=== PATIENT | male | born 1965 | race Caucasian/White ===

== ENCOUNTER → 2021-01-25 09:01 | Outpatient (BNVA) | payer OTHER, SELFPAY | PROVIDERS: Family Provider Nurse Practitioner; PCP Nurse Practitioner; Referring Provider Nurse Practitioner; Visit Provider Orthopaedic Surgery | DX: S69.91XA Unspecified injury of right wrist, hand and finger(s), initial encounter (principal); X58.XXXA Exposure to other specified factors, initial encounter | CPT/HCPCS: 73140 ==

== ENCOUNTER 2021-03-05 10:11 | Emergency (ER) | payer OTHER, SELFPAY ==
[2021-03-05 10:15] VITALS: BP 149/86; PULSE 79; RESP 16; TEMP 36.3; O2SAT 99; BMI 29.4
--- NOTE | 2021-03-05 10:17 | ED_ITS ---
HPI - Abdominal Pain General: Chief Complaint: Abdominal Pain Stated Complaint: ABD PAIN N/V Time Seen by Provider: 03/05/21 10:11 Source: patient Mode of arrival: ambulatory Limitations: no limitations History of Present Illness: HPI narrative: Patient is a 55-year-old male who presents to ED today with a complaint of abdominal pain. He tells me pain initially began on Thursday. He states pain is all over . Pain has been constant since onset and does not seem to be improving. He is treated with OTC anti-acid and stomach meds without relief. He states yesterday he had 3 episodes of nonbloody emesis. He has not vomited today. He has had a few episodes of nonbloody diarrhea. No fevers. No urinary complaints. No previous abdominal surgeries. Has not noticed any masses or bulges to his abdomen or groin. He states pain seems to be worse with eating and admittedly does not have much of an appetite. MD elicited complaint: abdominal pain Pertinent past history: none Onset (ago): day(s) Pain Consistency: constant Location: Diffuse Quality: cramping Radiation: none Migration to: no migration Exacerbating factors: eating Relieving factors: nothing Associated Symptoms: Reports GI cramping, diarrhea, nausea and vomiting; Denies chills, coffee ground emesis, dysuria, fever(s), hematochezia, hematemesis and melena Review of Systems Const: Reports: change in appetite; Denies: fever(s), chills, body aches, change in weight, fatigue, malaise or night sweats ENMT: Denies: throat pain or odynophagia Card: Denies: chest pain Resp: Denies: dyspnea GI: Reports: abdominal pain, nausea, vomiting, diarrhea and GI cramping; Denies: hematemesis, coffee ground emesis, dysphagia, rectal pain, rectal swelling, rectal itching, hematochezia or melena : Denies: flank pain or dysuria Musc: Denies: neck pain or back pain Skin/Breast: Denies: rash Neuro: Denies: headache(s) PFS ED PFSH: Social History (Updated 01/25/21 @ 08:57 by Jairo Becerra LPN) Smoking and tobacco status: current every day smoker Alcohol intake: never Physical Exam Const: COMMON NORMALS: no acute distress, patient oriented x3, no limitations, alert and well nourished GENERAL APPEARANCE: cooperative Resp: COMMON NORMALS: normal respiratory effort and clear to auscultation bilaterally AUSCULTATION: clear to auscultation bilaterally Cardio: COMMON NORMALS: regular rate and regular rhythm RATE: regular rate RHYTHM: regular rhythm GI: COMMON NORMALS: Normal to inspection, nondistended, normoactive bowel sounds present, Soft to palpation, No hepatosplenomegaly present and no masses INSPECTION: Yes normal to inspection AUSCULTATION: Yes normoactive bowel sounds PALPATION: Yes Soft to palpation, Yes Tenderness to palpation present (GI) (diffusely but seems more tender to LUQ) and Yes No hepatosplenomegaly present : COMMON NORMALS: Yes no CVA tenderness BLADDER/KIDNEY EXAM: Yes no CVA tenderness Back/Pelvis: COMMON NORMALS: no CVA tenderness, thoracic and lumbar spine normal to inspection, no thoracic nor lumbar tenderness and thoraco-lumbar ROM normal Extremity: GENERAL: Yes normal exam except as noted Neuro: COMMON NORMALS: patient oriented x3 SENSORIUM/ORIENTATION: Yes alert Skin: COMMON NORMALS: no rashes or lesions noted GENERAL SKIN EXAM: no rashes or lesions noted Course Vital Signs: Vital signs: Vital Signs Temperature 97.3 F L 03/05/21 10:15 Pulse Rate 63 03/05/21 11:29 Respiratory Rate 16 03/05/21 10:39 Blood Pressure 115/74 03/05/21 11:29 Pulse Oximetry 98 03/05/21 11:29 MDM - Abdominal Pain MDM Narrative: Medical decision making narrative: Patient clinically appears well. His vital signs are stable. Labs are overall unremarkable. CT scan showing mild enteritis. Possible mesenteric adenitis. Findings discussed with patient. Discussed how this most likely will be self-limiting. Will place patient on pain and nausea medications and recommend bland diet with advancing as tolerated. [facility] Return to ED precautions given. Lab Data: Labs: Lab Results 03/05/21 03/05/21 03/05/21 Range/Units 10:35 10:35 11:24 WBC 10.5 H (4.0-10.0) 10^3/ uL RBC 4.89 (4.1-5.3) 10^6/u L Hgb 15.8 (11.7-16.6) g/dL Hct 46.2 (42.0-52.0) % MCV 94.5 H (80-94) fL MCH 32.3 (28.0-34.0) pg MCHC 34.2 (30.0-36.0) g/dL RDW 12.4 (12.1-15.1) % Plt Count 155 (130-400) 10^3/c mm MPV 13.0 H (7.4-10.4) fL Neut % (Auto) 71.3 % Lymph % (Auto) 18.9 % Rusk % (Auto) 8.1 % Eos % (Auto) 0.7 % Baso % (Auto) 0.7 % Neut # (Auto) 7.50 (1.8-7.7) 10^3/u L Lymph # (Auto) 2.0 (0.8-4.8) 10^3/u L Rusk # (Auto) 0.9 (0.2-0.9) 10^3/u L Eos # (Auto) 0.1 (0.0-0.8) 10^3/u L Baso # (Auto) 0.1 (0.0-0.1) 10^3/u L Nucleated RBC % (a uto) 0 % Nucleated RBCs # 0.0 /100WBC Sodium 131 L (136-145) mmol/L Potassium 3.8 (3.5-5.1) mmol/L Chloride 93 L (98-107) mmol/L Carbon Dioxide 25 (22-29) mmol/L Anion Gap 16.8 (5-19) BUN 7 (6-20) mg/dL Creatinine 0.9 (0.7-1.2) mg/dL GFR Calculation 87.0 L (90-130) mL/min Glucose 109 (65-115) mg/dL Calculated Osmolal ity 271 L (285-295) mOsm/k g Calcium 9.3 (8.5-10.5) mg/dL Total Bilirubin 0.6 (0.15-1.2) mg/dL AST 13 (0-40) U/L ALT 8 (0-41) U/L Alkaline Phosphata se 112 (40-130) IU/L Total Protein 7.6 (6.6-8.7) g/dL Albumin 4.6 (3.5-5.2) g/dL Globulin 3.0 (1.3-4.6) g/dL Lipase 103 H (13-60) U/L Urine Color Yellow (Yellow) Urine Appearance Clear (CLEAR) Urine pH 7 (5-7) Ur Specific Gravit y 1.005 (1.005-1.030) Urine Protein Neg (Negative) Urine Glucose (UA) Norm (Normal) Urine Ketones 1+ H (Negative) Urine Blood Neg (Negative) Urine Nitrate Negative (Negative) Urine Bilirubin Neg (Negative) Urine Urobilinogen Norm (Negative) mg/dL Ur Leukocyte Radha ase Negative (Negative) Imaging Data ^: CT Abd/Pel: Radiologist's impression: [address] [address] [address] Scan Report Signed Patient: Payam Aleman Unit #: [id number] : [id number] Age/Sex: 55 / M ADM Date: 03/05/21 Loc: ER Room/Bed: Attending Dr: Ordering Provider/Ordering MD: Kym James Date of Service: 03/05/21 Procedure(s): CT abdomen pelvis w con* [id number] Accession Number(s): [id number] Report Number: [id number] WS: [id number] CT ABDOMEN AND PELVIS WITH CONTRAST HISTORY: diffuse abdominal pain TECHNIQUE: Imaging performed of the abdomen and pelvis with IV contrast. Single phase imaging of the abdomen. Coronal and sagittal reformats are submitted. All CT scans at [facility] u se at least one of these dose optimization techniques: automated exposure control; mA and/or kV adjustment per patient size (includes targeted exams where dose is matched to clinical indication); or iterative reconstruction. IV CONTRAST: Omnipaque 300; 95 mL IV. Oral contrast: No DLP: 1706.44 mGy.cm COMPARISON: 12/03/2017 Lower thorax: Mild hazy opacifications and interstitial thickening at the lung bases. Similar to the prior study. No dense consolidation or nodule. Heart is normal size. Small hiatal hernia. Liver/biliary system: Normal size with no intrahepatic dilatation. Gallbladder: Normal. No gallstones or wall thickening. No pericholecystic fluid. Pancreas: Normal size pancreas and pancreatic duct. No adjacent inflammation. Spleen: Normal size spleen. No mass or infarct. Adrenal glands: Normal. Right kidney: Normal. Left kidney: Normal. Aorta: Mild atherosclerosis aorta. Circumaortic LEFT renal vein. Lymphadenopathy: None. Free fluid: None. GI tract: Scattered foci of increased density within the GI tract is probably medicinal. The appendix is normal. Very minimal amount of increased fluid in the stomach and small bowel. There is no obstructive pattern. Mild hyperemia of the jejunal loops. Abdominal wall: Fat-containing umbilical hernia. Pelvis: No free fluid or adenopathy within the pelvis. Normally distended urinary bladder. Bones: Unremarkable. CT/CT abdomen pelvis w con* [id number] IMPRESSION: 1. Mild enteritis. Slight increased amount of fluid in the small bowel and mild enhancement of the jejunal loops. No obstruction. 2. There are a few lymph nodes in the central mesentery which may be due to mesenteric adenitis. 3. Normal appendix. 4. Stable mild interstitial thickening and groundglass attenuation at the lung bases. Probably from history of smoking. Dictated By: Brittani Floyd DO Signed By: Brittani Floyd DO Signed Date/Time: 03/05/21 1124 DD/ 1116 Discharge Plan Discharge Patient Disposition: Home Clinical Impression: Enteritis Condition: Stable Prescriptions: New hydrocodone-acetaminophen 5-325 mg tablet 1 tab PO Q6H PRN (Reason: pain) Qty: 10 RF: 0 Zofran 4 mg tablet 4 mg PO Q6H PRN (Reason: nausea and vomiting) Qty: 14 RF: 0 No Action pantoprazole [Protonix] [address] for susp in packet 40 mg PO QAM RF: 0 polyethylene glycol 3350 [Miralax] 17 gram/dose powder 17 g PO QAM RF: 0 fluoxetine 20 mg capsule 20 mg PO QAM RF: 0 cholecalciferol (vitamin D3) 50 mcg (2,000 unit) capsule 50 mcg PO QAM RF: 0 quetiapine [Seroquel] 400 mg tablet 400 mg PO BEDTIME RF: 0 dicyclomine 10 mg capsule 20 mg PO Q6H PRN (Reason: IRRITABLE BOWEL) RF: 0 albuterol sulfate 90 mcg/actuation HFA aerosol inhaler 2 inh inhalation QID PRN (Reason: Shortness Of Breath) RF: 0 Pepto-Bismol 262 mg/15 mL Suspension 262 mg PO PRN RF: 0 Wellbutrin XL 150 mg Tablet Extended Release 24 Hr 150 mg PO QAM RF: 0 Discharge Orders: Discharge ED (Routine); Ordered 03/05/21 Ordered By: Kym James Referrals: Frankie Mckeon DO [Primary Care Provider] - Patient Instructions: Opioid Safety Activity Restrictions/Additional Instructions: [facility] is committed to fighting the nationwide opiate epidemic. We are providing ALL patients with information regarding opiate safety. If you received opiate pain medication during your stay or if you received a prescription for opiate pain medication-please review this handout. If not, you may disregard. Thank you. As we discussed most of the time your diagnosis is self-limiting meaning it should go away on its own. You may take the prescribed pain medications for severe pain only. As we discussed please start a bland liquid diet for the next 48 to 72 hours and advance as tolerated. [facility] 5 [facility] for not improving symptoms. Return to the emergency department for worsening or severe abdominal pain, repetitive episodes of vomiting or diarrhea, fevers, or any other concerns you may have. Coding Level of Care Code ED Insurance Marketing Specialist for Kristen Birch Exam Comprehensive
[2021-03-05 10:22] VITALS: BP 149/86; PULSE 66; RESP 18; O2SAT 99
--- NOTE | 2021-03-05 10:25 | CT_ITS ---
WS: [id number] CT ABDOMEN AND PELVIS WITH CONTRAST HISTORY: diffuse abdominal pain TECHNIQUE: Imaging performed of the abdomen and pelvis with IV contrast. Single phase imaging of the abdomen. Coronal and sagittal reformats are submitted. All CT scans at [facility] use at least one of these dose optimization techniques: automated exposure control; mA and/or kV adjustment per patient size (includes targeted exams where dose is matched to clinical indication); or iterativ e reconstruction. IV CONTRAST: Omnipaque 300; 95 mL IV. Oral contrast: No DLP: 1706.44 mGy.cm COMPARISON: 12/03/2017 Lower thorax: Mild hazy opacifications and interstitial thickening at the lung bases. Similar to the prior study. No dense consolidation or nodule. Heart is normal size. Small hiatal hernia. Liver/biliary system: Normal size with no intrahepatic dilatation. Gallbladder: Normal. No gallstones or wall thickening. No pericholecystic fluid. Pancreas: Normal size pancreas and pancreatic duct. No adjacent inflammation. Spleen: Normal size spleen. No mass or infarct. Adrenal glands: Normal. Right kidney: Normal. Left kidney: Normal. Aorta: Mild atherosclerosis aorta. Circumaortic LEFT renal vein. Lymphadenopathy: None. Free fluid: None. GI tract: Scattered foci of increased density within the GI tract is probably medicinal. The appendix is normal. Very minimal amount of increased fluid in the stomach and small bowel. There is no obstru ctive pattern. Mild hyperemia of the jejunal loops. Abdominal wall: Fat-containing umbilical hernia. Pelvis: No free fluid or adenopathy within the pelvis. Normally distended urinary bladder. Bones: Unremarkable. CT/CT abdomen pelvis w con* [id number] IMPRESSION: 1. Mild enteritis. Slight increased amount of fluid in the small bowel and mil d enhancement of the jejunal loops. No obstruction. 2. There are a few lymph nodes in the central mesentery which may be due to me senteric adenitis. 3. Normal appendix. 4. Stable mild interstitial thickening and groundglass attenuation at the lung bases. Probably from history of smoking.
[2021-03-05 10:33] VITALS: RESP 16; O2SAT 99
[2021-03-05] MEDS: morphine 4 mg/mL SDV 1 mL IVP (10:33)
[2021-03-05] MEDS: ondansetron 2 mg/ML SDV 2 mL 4 MG IVP (10:35)
[2021-03-05 10:39] VITALS: BP 121/74; PULSE 79; RESP 16; O2SAT 98
[2021-03-05] MEDS: sodium chloride 0.9% 1,000 ML 999 ML IV (10:39)
--- NOTE | 2021-03-05 10:40 | PC.NURSE ---
Pt given urinal for UA. Pt states he is unable to go at this time.
[2021-03-05 10:42] LABS: Basophils # 0.1 10^3/uL (0.0-0.1); Basophils % 0.7 %; Eosinophils # 0.1 10^3/uL (0.0-0.8); Eosinophils % 0.7 %; Hematocrit 46.2 % (42.0-52.0); Hemoglobin 15.8 g/dL (11.7-16.6); Lymphocytes % 18.9 %; Mean Corpuscular HGB Conc 34.2 g/dL (30.0-36.0); Mean Corpuscular Hemoglobin 32.3 pg (28.0-34.0); Mean Corpuscular Volume 94.5 fL (80-94); Monocytes # 0.9 10^3/uL (0.2-0.9); Monocytes % 8.1 %; Neutrophils % 71.3 %; Nucleated Red Blood Cells % 0 %; Platelet Count 155 10^3/cmm (130-400); Red Blood Count 4.89 10^6/uL (4.1-5.3); Red Cell Distribution Width 12.4 % (12.1-15.1); White Blood Count 10.5 10^3/uL (4.0-10.0)
[2021-03-05] MEDS: iohexol 300 mg/mL 100 mL Btl IV (10:58)
[2021-03-05 11:11] LABS: Alanine Aminotransferase 8 U/L (0-41); Albumin Level 4.6 g/dL (3.5-5.2); Alkaline Phosphatase 112 IU/L (40-130); Anion Gap 16.8 (5-19); Aspartate Amino Transferase 13 U/L (0-40); Blood Urea Nitrogen 7 mg/dL (6-20); Calcium 9.3 mg/dL (8.5-10.5); Carbon Dioxide 25 mmol/L (22-29); Chloride 93 mmol/L (98-107); Glucose 109 mg/dL (65-115); Lipase 103 U/L (13-60); Osmolality Calculated 271 mOsm/kg (285-295); Potassium 3.8 mmol/L (3.5-5.1); Sodium 131 mmol/L (136-145); Total Bilirubin 0.6 mg/dL (0.15-1.2); Total Protein 7.6 g/dL (6.6-8.7)
[2021-03-05 11:29] VITALS: BP 115/74; PULSE 63; O2SAT 98
[2021-03-05 11:54] LABS: Add Urine Microscopic? NO; Charge for UA Resulting for Rev
[2021-03-05 12:05] LABS: Bilirubin Urine Neg (Negative); Blood Urine Neg (Negative); Glucose Urine UA Norm (Normal); Ketones Urine 1+ (Negative); Nitrate Urine Negative (Negative); Protein Urine Neg (Negative); Specific Gravity, Urine 1.005 (1.005-1.030); Urine Appearance Clear (CLEAR); Urine Color Yellow (Yellow); pH Urine 7 (5-7)
[2021-03-05 12:06] LABS: Leukocyte Esterase Urine Negative (Negative); Urobilinogen Urine Norm (Negative)
[2021-03-05 12:43] VITALS: BP 128/94; PULSE 65; O2SAT 99
== END 2021-03-05 12:30 | disposition home or self-care (01) ==
PROVIDERS: Emergency Provider Physician Assistant; PCP Emergency Medicine Emergency Medical Services
DX: K52.9 Noninfective gastroenteritis and colitis, unspecified (principal); F17.210 Nicotine dependence, cigarettes, uncomplicated
CPT/HCPCS: 74177; 80053; 81003; 83690; 85025; 96361; 96374; 96375; 99284; J2270; J2405; J7030; Q9967

== ENCOUNTER 2021-12-23 09:21 | Outpatient (CLI) | payer OTHER, SELFPAY ==
[2021-12-23 11:13] LABS: Basophils # 0.1 10^3/uL (0.0-0.1); Basophils % 0.6 %; Eosinophils # 0.1 10^3/uL (0.0-0.8); Eosinophils % 1.3 %; Hematocrit 46.7 % (42.0-52.0); Hemoglobin 16.1 g/dL (11.7-16.6); Lymphocytes % 18.3 %; Mean Corpuscular HGB Conc 34.5 g/dL (30.0-36.0); Mean Corpuscular Hemoglobin 32.9 pg (28.0-34.0); Mean Corpuscular Volume 95.5 fl (80-94); Mean Platelet Volume 12.2 fL (7.4-10.4); Monocytes # 0.7 10^3/uL (0.2-0.9); Monocytes % 6.4 %; Neutrophils # 7.77 10^3/uL (1.8-7.7); Neutrophils % 73.1 %; Nucleated Red Blood Cells % 0 %; Platelet Count 164 10^3/cmm (130-400); Red Blood Count 4.89 10^6/uL (4.1-5.3); Red Cell Distribution Width 13.7 % (12.1-15.1); White Blood Count 10.6 10^3/uL (4.0-10.0)
[2021-12-23 11:25] LABS: Erythrocyte Sedimentation Rate 23 mm/hr (0-10)
[2021-12-23 11:32] LABS: LAB Peripheral Smear Sent for Review
[2021-12-23 11:55] LABS: Alanine Aminotransferase 18 U/L (0-41); Albumin Level 4.3 g/dL (3.5-5.2); Alkaline Phosphatase 98 IU/L (40-130); Anion Gap 14.4 (5-19); Aspartate Amino Transferase 16 U/L (0-40); Blood Urea Nitrogen 10 mg/dL (6-20); C Reactive Protein 7.1 mg/L (0.0-4.9); Calcium 9.3 mg/dL (8.5-10.5); Carbon Dioxide 24 mmol/L (22-29); Chloride 101 mmol/L (98-107); Globulin 3.4 g/dL (1.3-4.6); Glucose 108 mg/dL (65-115); Lactate Dehydrogenase 209 U/L (135-225); Osmolality Calculated 280 mOsm/kg (285-295); Potassium 4.4 mmol/L (3.5-5.1); Sodium 135 mmol/L (136-145); Total Bilirubin 0.4 mg/dL (0.15-1.2); Total Protein 7.7 g/dL (6.6-8.7); Vitamin B12 294 pg/mL (232-1245)
--- NOTE | 2021-12-23 13:45 | ONC CON_ITS ---
Dr. Enamorado New Patient Note Patient: Payam Aleman Unit #: [id number]: [id number] Dicatated By: Jorge Enamorado M.D.Date of Visit: Dec 23, 2021 Onc MED New Patient/Consult Referring Physician: Dr. JUVENCIO DUFF M.D. Chief Complaint: Thrombocytopenia. History of Present Illness: This is a 55-year-old man with mild thrombocytopenia. This patient has hyperlipidemia, COPD, GERD, irritable bowel syndrome, and degenerative arthritis. He also has posttraumatic stress disorder and schizoaffective disorder. He receives his primary care through the [facility]. On a scheduled follow-up at the [facility] in November 2021 he was noted to have mild thrombocytopenia. His laboratory studies from 11/12/2021 included CBC showing hemoglobin 15.7 g with hematocrit 46.6%. The red cell indices were normal. The white blood cell count was 9100 with a differential showing 59% neutrophils, 29% lymphocytes, and 8% monocytes. The platelet count was mildly decreased at 142,000. His comprehensive metabolic profile showed borderline renal function with creatinine 1.14 mg/dL. The bilirubin and liver enzymes were normal. He says his energy is pretty good, but he does have limited activity. His ECOG score is 1. He has good appetite. He does not have fever or night sweats. He complains that he is in constant pain. The most significant is in his feet, but he also has pain in his neck and back, in his elbow/arms, and in his hips and legs. He has not had sore mouth or throat. He reports having a smokers cough. He has some shortness of breath, but his breathing is pretty good. He uses an inhaler as needed. He has not been having chest pain. He has acid reflux. He has episodes of abdominal cramping and diarrhea with the irritable bowel syndrome, and he occasionally has nausea/vomiting with it. He has not been aware of any blood in the stool. His most recent colonoscopy was somewhere between age 48 and 53. He has no complaints. He does not complain of headache or dizziness. He sometimes has numbness, but that tends to be positional. He has no other focal neurologic symptoms. He recently had an episode of bruising in the gluteal area with no obvious associated trauma. He has had no other abnormal bruising or other bleeding manifestations. Past Medical History: His medical history includes chronic insomnia, chronic obstructive pulmonary disease, gastroesophageal reflux disease, hyperlipidemia, irritable bowel syndrome, low back pain, osteoarthritis, PTSD/depression, schizoaffective disorder, and vitamin D deficiency. He also reports having a history of Lyme disease/tick fever. Past Surgical History: His surgical/procedural history includes colonoscopy, dental implants, and left foot surgery. Medications: buPROPion HCl ER (SR) 1 Tablet (of 150 mg) Tablet SR 12 HR Oral daily, Clobetasol Propionate (0.05 %) Ointment Topical Take as Directed, FLUoxetine HCl 1 Tablet (of 20 mg) Oral daily, ProAir HFA 2 Inhalation (of 108 (90 base) mcg/act) Aerosol, solution Inhalation four times a day, QUEtiapine Fumarate ER 1 Tablet (of 400 mg) Tablet SR 24 HR Oral daily, Vitamin D3 1 Capsule (of 50 mcg ) Oral daily Allergies: Augmentin, Niacin, Rabies Immune Globulin, Rabies Vaccine, PCEC, Rosuvastatin Calcium, and Simvastatin. Social History: Mr. Aleman is . He is disabled. He has been smoking his entire life, currently 1 pack of cigarettes daily. He also smokes a cigar every day. He has just occasional alcohol use. Family History: Both parents in their late 80s, presumably of old age. He has no siblings. Review Of Symptoms: Constitutional - His energy is pretty good, but he does have limited activity. His appetite is good and his weight is stable. He has no fever or night sweats. ECOG score is 1, Eyes - No change in vision, ENMT - He has hearing loss and tinnitus. No sinus congestion/drainage. No mouth sores. No sore throat or difficulty swallowing, Hematologic/Lymphatic - He has had a recent episode of bruising. He has had no other bleeding manifestations, Respiratory - He has some shortness of breath, but his breathing is pretty good. He uses an inhaler as needed. No cough. No pleuritic pain or hemoptysis, Cardiovascular - No angina pain. No palpitations, Gastrointestinal - He has occasional nausea/vomiting. He has acid reflux. He has episodes of diarrhea and abdominal cramping associated with the irritable bowel syndrome. He has not had blood in the stool or black stools, Genitourinary (M) - No dysuria or hematuria. No urinary frequency. No urgency or incontinence, Musculoskeletal - He says he has constant pain. The most significant is in his feet. He also has pain in his neck, back, elbows/arms, and in his hips and legs, Integumentary - He gets sores on his skin, which he treats topically, Neurologic - No headache or dizziness. He sometimes has numbness/tingling, but that does tend to be positional. He has noother focal neurologic symptoms, Psychiatric - He has PTSD and depression, but it has been well managed with medication. He has chronic insomnia. Vital Signs: Performed on Dec 23, 2021 10:46: 1, 5, 29.85, 1.98 sq.m, 67 in, 97 %, 89 /min, 16 /min, 118/78 mm(hg), 98.4 F, and 190.6 lbs (HIGH). Physical Examination: Constitutional - He looks pretty good generally, but he does have limited mobility, Eyes - Sclerae nonicteric. Conjunctivae clear, ENMT - No lesions noted in the oral cavity, Neck - No mass or thyromegaly, Hematologic/Lymphatic - No cervical, clavicular, or axillary adenopathy, Respiratory - Lungs sound clear. He has pretty good air movement bilaterally, Cardiovascular - Heart rhythm is regular. There is no murmur, gallop, or rub noted, Abdomen - Soft and non-tender. Liver and spleen are not enlarged. There is no abdominal mass or ascites noted and there is no inguinal adenopathy, Extremities - No edema. Pedal pulses are palpable bilaterally, Integumentary - No rashes. No suspicious skin lesions noted, Neurologic - No focal neurologic deficits noted. Problem List: 1. Mild thrombocytopenia. 2. Hyperlipidemia. 3. COPD. 4. GERD. 5. Irritable bowel syndrome. 6. Degenerative arthritis with chronic pain. 7. Vitamin D deficiency. 8. Chronic insomnia. 9. PTSD/depression. 10. Schizoaffective disorder. Problems Addressed with this Encounter and Plan: Patient with mild thrombocytopenia. The cause/clinical significance is uncertain. He does not have any associated bleeding tendency. The laboratory findings were reviewed with the patient, and we discussed the clinical implications. He will have additional laboratory studies today to include CBC, comprehensive metabolic profile, LDH level, sed rate and CRP level, CARLI screen and RA titer, and B12 level. I will review the blood smear. He will have further evaluation as indicated. However, in the setting of a slightly low platelet count as an isolated finding, I will most likely just follow him expectantly. Signed By: Jorge Enamorado M.D. <<Signature on File>>
[2021-12-24 15:43] LABS: Anti-Nuclear Antibody Screen NEGATIVE (NEGATIVE)
== END 2021-12-23 09:22 | disposition home or self-care (01) ==
PROVIDERS: PCP Nurse Practitioner; Visit Provider Internal Medicine Medical Oncology
DX: D69.6 Thrombocytopenia, unspecified (principal); E78.5 Hyperlipidemia, unspecified; J44.9 Chronic obstructive pulmonary disease, unspecified; K21.9 Gastro-esophageal reflux disease without esophagitis; K58.9 Irritable bowel syndrome, unspecified; M19.90 Unspecified osteoarthritis, unspecified site; G89.29 Other chronic pain; E55.9 Vitamin D deficiency, unspecified; F51.04 Psychophysiologic insomnia; F43.10 Post-traumatic stress disorder, unspecified; F32.A Depression, unspecified; F20.9 Schizophrenia, unspecified; Z79.899 Other long term (current) drug therapy
CPT/HCPCS: 36415; 80053; 82607; 83615; 85025; 85651; 86038; 86140; 86431; 99204

== ENCOUNTER 2022-03-26 11:03 | Oncology outpatient (recurring) (ONCR) | payer OTHER, SELFPAY | END 2022-04-13 23:59 | disposition home or self-care (01) | PROVIDERS: PCP Nurse Practitioner; Visit Provider Internal Medicine Medical Oncology | DX: D69.6 Thrombocytopenia, unspecified (principal) | CPT/HCPCS: 36415; 80053; 82607; 83921; 85025; 85651; G0463 ==

== ENCOUNTER → 2022-07-09 08:54 | Outpatient (BNVA) | payer OTHER, SELFPAY | PROVIDERS: PCP Nurse Practitioner; Referring Provider Nurse Practitioner; Visit Provider Orthopaedic Surgery | DX: M25.521 Pain in right elbow (principal) | CPT/HCPCS: 99203 ==

== ENCOUNTER → 2022-08-06 11:33 | Outpatient (BNVA) | payer OTHER, SELFPAY | PROVIDERS: PCP Nurse Practitioner; Referring Provider Orthopaedic Surgery; Visit Provider Specialist | DX: R20.0 Anesthesia of skin (principal); R20.2 Paresthesia of skin | CPT/HCPCS: 95910; 95912 ==

== ENCOUNTER → 2022-10-06 13:15 | Outpatient (BNVA) | payer OTHER, SELFPAY | PROVIDERS: PCP Nurse Practitioner; Referring Provider Orthopaedic Surgery; Visit Provider Specialist | DX: M79.601 Pain in right arm | CPT/HCPCS: 95907; 95908 ==

== ENCOUNTER → 2022-11-13 12:20 | Outpatient (BNVA) | payer OTHER, SELFPAY | PROVIDERS: PCP Nurse Practitioner; Referring Provider Orthopaedic Surgery; Visit Provider Specialist | DX: M25.521 Pain in right elbow (principal); M79.7 Fibromyalgia | CPT/HCPCS: 95860; 99202 ==

== ENCOUNTER → 2024-01-15 09:10 | Outpatient (BNVA) | payer OTHER, SELFPAY | PROVIDERS: PCP Nurse Practitioner; Referring Provider Nurse Practitioner; Visit Provider Student in an Organized Health Care Education/Training Program | DX: M79.641 Pain in right hand (principal); M20.011 Mallet finger of right finger(s); M15.1 Heberden's nodes (with arthropathy); M67.441 Ganglion, right hand; Z79.899 Other long term (current) drug therapy | CPT/HCPCS: 73130; 99204 ==

== ENCOUNTER 2024-02-17 08:39 | Day surgery (SDC) | payer OTHER, SELFPAY ==
[2024-02-17] VITALS (9 sets, daily range): BP systolic 101–122; BP diastolic 62–80; PULSE 62–74; RESP 18–26; TEMP 36.4–37.1; O2SAT 93–97; BMI 29.0
--- NOTE | 2024-02-17 | XR_ITS ---
WS: [id number] C-ARM RADIOGRAPHS RIGHT FINGER; 2 IMAGES HISTORY: KEVIN PICS COMPARISON: None available. Images are not labeled but this does appear to be the middle finger of the RIGHT hand. Intraoperative placement of screw fixation across the DIP joint. Screw appears in satisfactory position. XR/XR finger RT min 2V [id number] IMPRESSION: Intraoperative screw fixation across the DIP joint third finger.
[2024-02-17] MEDS: sodium chloride 0.9% 1,000 ML 30 ML IV (09:20)
[2024-02-17] MEDS: acetaminophen 1,000 MG/100 ML PIGGYBACK 400 MG IV (09:32)
[2024-02-17] MEDS: ketorolac 30 mg/mL INJ IVP (09:32)
[2024-02-17] MEDS: scopolamine 1.5 Patch 1 PATCH TRANSDERMA (09:34)
--- NOTE | 2024-02-17 10:50 | P.HP_ITS ---
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, muc PLANNED PROCEDURE: Operation Date: 02/17/24 10:40 Proposed Procedures p Arthrodesis Hand/Right middle finger Distal Interphalangeal Joint arthrodesis(Right) - Ezio Cunha DO s Excision Mass/Lesion Upper Extremity Finger Cyst Excision/right middle finger mucous cyst excision(Right) - Ezio Cunha DO Medications/Allergies* Home Medications Medication Instructions Recorded Confirmed Type albuterol sulfate 90 mcg/actuation 2 inh inhalation QID PRN Shortness 01/25/21 02/16/24 History aerosol inhaler Of Breath cholecalciferol (vitamin D3) 50 50 mcg PO QAM 01/25/21 02/16/24 History mcg (2,000 unit) capsule fluoxetine 20 mg capsule 20 mg PO QAM 01/25/21 02/16/24 History quetiapine 400 mg tablet (Seroquel) 400 mg PO BEDTIME 01/25/21 02/16/24 History bupropion HCl 150 mg 24 hr tablet, 150 mg PO QAM 03/05/21 02/16/24 History extended release (Wellbutrin XL) clobetasol 0.05 % topical cream 1 applic topical DAILY 08/06/22 02/16/24 History triamcinolone acetonide 0.1 % 1 applic topical BID 08/06/22 02/16/24 History topical cream fluticasone 250 mcg-salmeterol 50 1 inh inhalation BID 02/16/24 02/16/24 History mcg/dose blistr powdr for inhalation (Wixela Inhub) Allergies/Adverse Reactions Allergy/AdvReac Type Severity Reaction Status Date / Time niacin Allergy ADR-Muscle Verified 02/17/24 09:05 Pain Penicillins Allergy rash Verified 02/16/24 12:36 rabies vaccine, [employer]-tissue Allergy hives Verified 02/16/24 12:36 type [id number]-GaE Reductase Allergy unknown Verified 02/16/24 12:36 Inhibitor [Wozhmau-Jta-Yey Reductase Inhibitor] Pertinent History/Comorbid Conditions* Medical History (Updated 01/31/24 @ 08:34 by Ezio Guerline, DO) History of Lyme disease Vitamin D deficiency Schizoaffective disorder Depression Post traumatic stress disorder (PTSD) Osteoarthritis Irritable bowel syndrome Hyperlipidemia Chronic insomnia GERD (gastroesophageal reflux disease) COPD (chronic obstructive pulmonary disease) Surgical History (Updated 03/29/22 @ 14:45 by Jorge Enamorado MD) H/O oral surgery dental implants H/O foot surgery Social History Smoking and tobacco/nicotine status: current every day tobacco/nicotine user Alcohol intake: never Substance/Drug Use: current Pertinent Exam Findings alert, oriented x 3, operative site marked and procedure specific exam findings Please refer to detailed orthopedic examination performed on 01/15/2024 unchanged examination from previous visit: Right Hand Exam: Patient is able to make a fist 35 degree extensor lag of middle fingerTenderness over DIP joint, with palpable bony prominence dorsally with a palpable Mucous cyst of right middle finger No PIP joint tenderness to palpation DIP joint can passively be extended with only lacking of roughly 10 degrees full extension Sensation intact to light touch distally Fingertip warm well-perfused Recommendations Surgery/Procedure today Other Plans: Plan to proceed to the OR today for right middle finger mucous cyst excision and right middle finger distal interphalangeal joint arthrodesis. Patient understands the ins and outs procedure risk benefits complication alternatives of surgery and through shared decision make elects proceed with surgical intervention all questions answered at this time. Coding Level of Care Code Acute Code for Kristen Birch
[2024-02-17] MEDS: clindamycin 900 MG/50 ML PREMIX 100 MG IV (11:29)
[2024-02-17] MEDS: BUPivacaine 0.5% INJ 30 mL INJECTION (11:42)
[2024-02-17] MEDS: ROPivacaine 0.5% SDV 30 mL 150 MG INJECTION (11:42)
[2024-02-17] MEDS: HYDROcodone-acetaminophen 7.5-325 mg Tablet 1 TAB PO (13:44)
--- NOTE | 2024-02-17 13:45 | W.PM.BPON ---
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
--- NOTE | 2024-02-17 13:50 | P.OP_ITS ---
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 Procedure done: Right Middle finger mucus cyst excision Right Middle finger DIP joint arthrodesis Implants: Arthrex 2.5 mm headless compression screw fully threaded Specimens removed/disposition: Mucous cyst right middle finger DIP joint excised sent for pathology Pathology: Mucous cyst right middle finger excised Surgeon: Ezio Cunha DO Anesthesia: MAC and Local Estimated blood loss: 5 mL 58 minutes IV fluids: 800 mL Complications: None Findings: See operative report narrative Condition: stable Disposition: same day Brief History: Patient seen evaluated the in the outpatient setting findings consistent with right middle finger mucous cyst with a chronic mallet finger with some degenerative changes of the joint. We talked about his treatment options are as nonoperative operative mention. At this point time he would like to have the cyst excised as well as a more permanent fix to the deformity to hopefully correct and avoid any further mucous cyst formation and as result would like to undergo a right middle finger DIP joint arthrodesis and mucous cyst excision. He understands the enzymes procedure risk benefits complication alternatives with surgery and through shared decision reflux proceed with surgical intervention all questions answered at this time. Procedure: Patient seen eval in the preoperative holding area. Consent was reviewed and signed with patient. Correct extremity was then subsequently marked. Patient was then seen evaluated by anesthesia once cleared for surgery was taken back to the operative suite kept in supine position on [facility] armboard applied to the right upper extremity. Patient then subsequently underwent anesthesia per the anesthesia department. This point in time nonsterile tourniquet applied to right upper arm and right upper extremities then prepped and draped standard orthopedic fashion. Final timeout performed. Patient received appropriate preoperative antibiotics. Esmarch tourniquet was used exsanguinate right upper extremity and 250 mmHg was inflated. Patient had a small incision over the right middle finger DIP joint that was made over the mucous cyst standard L fashion along the eponychial fold and transversely across the joint. I then utilized sharp scalpel excision to excise out the mucous cyst and was sent for pathology. At this point in time it was noted the patient's finger had chronic mallet middle finger. Once this was excised I then spread longitudinally over the remanent of the extensor tendon of chronic fibrous tissue mobilize this so I could look directly into the DIP joint. There is significant cartilage loss as well as small dorsal osteophytes which I used a rongeur to little this down and then utilized a curette as well as K wire to scrape all the rest of the cartilage used rongeur to remove this as well as K wire to fenestrate the joint for joint preparation for fusion and arthrodesis. Once I satisfied with my joint prep I then utilized Arthrex fully threaded cannulated screw set and in standard retrograde fashion started at the distal phalanx distally and retrograde fashion drilled this across the DIP joint holding the joint reduced in an straight fashion subsequently Vantas across the DIP joint was satisfied my placement on multiple fluoroscopic imaging this point in time utilized cannulated drill to overdrilled the K wire took appropriate measurement and then advancing appropriately length 2.5 mm Arthrex fully threaded cannulated screw and had excellent compression across the DIP joint which was visible through my incision. Initial guidewire was then subsequently removed and final x-rays taken showing stable compression close the DIP joint demonstrating arthrodesis of the DIP of the right middle finger. This completed my arthrodesis I then thoroughly irrigated the wound bed and then reapproximated the joint capsule with Monocryl suture. Tourniquet deflated hemostasis satisfactory and then closed the incision in standard interrupted nylon suture fashion. This was dressed with Xeroform 4 x 4's Kerlix Alicia wrap fluffs and a splint and an Escobar wrap. Patient tolerated this without any issues or complications. Patient taken to PACU in stable condition. Disposition: Patient taken back in stable condition recovering well patient received appropriate postoperative discharge suction as well as pain medication. Will follow-up with patient in the office 2 weeks for recheck. At 1 time operative incision with some range of motion with OT hand therapy. Should be nonweightbearing for at least 6 weeks. All questions answered.
--- NOTE | 2024-02-17 14:15 | ANE.PACU2 ---
Inpatient post-anesthesia follow up: Airway intact: Yes Vital signs: Temperature 98.7 F Pulse Rate 66 Respiratory Rate 18 Blood Pressure 117/66 Pulse Oximetry 96 Oxygen Delivery Me thod Room Air Oxygen Flow Rate Fraction of Inspir ed Oxygen Hydration adequate: Yes Nausea and vomiting: No Pain level: 1 Mental status: Baseline
== END 2024-02-17 14:14 | disposition home or self-care (01) ==
PROVIDERS: PCP Nurse Practitioner; Visit Provider Student in an Organized Health Care Education/Training Program
PROC: (CPT 26160; principal; 2024-02-17 10:40)
PROC: (CPT 26160; 2024-02-17 10:40)
DX: L72.9 Follicular cyst of the skin and subcutaneous tissue, unspecified (principal); M20.011 Mallet finger of right finger(s); M19.041 Primary osteoarthritis, right hand; E78.5 Hyperlipidemia, unspecified; F32.A Depression, unspecified; K21.9 Gastro-esophageal reflux disease without esophagitis; J44.9 Chronic obstructive pulmonary disease, unspecified; F17.200 Nicotine dependence, unspecified, uncomplicated
CPT/HCPCS: 26160; 26860; 73140; 76000; 88304; C1713; J0131; J1885; J2250; J2704; J2795; J3010; J3490; J7030

== ENCOUNTER 2024-03-03 06:00 | Outpatient (RCR) | payer OTHER, SELFPAY | END 2024-03-13 23:59 | disposition home or self-care (01) | LOC: SOT 06:00 | PROVIDERS: PCP Nurse Practitioner; Visit Provider Physician Assistant | DX: Z47.1 Aftercare following joint replacement surgery (principal); Z96.691 Finger-joint replacement of right hand | CPT/HCPCS: 97760; 99024; L3935 ==

== ENCOUNTER → 2024-03-03 11:29 | Outpatient (BNVA) | payer OTHER, SELFPAY | PROVIDERS: PCP Nurse Practitioner; Visit Provider Physician Assistant | DX: M67.441 Ganglion, right hand (principal); M15.1 Heberden's nodes (with arthropathy); M20.011 Mallet finger of right finger(s); Z98.890 Other specified postprocedural states | CPT/HCPCS: 73130 ==

== ENCOUNTER 2024-03-09 06:00 | Outpatient (RCR) | payer OTHER, SELFPAY | END 2024-03-13 23:59 | disposition home or self-care (01) | LOC: SOT 06:00 | PROVIDERS: Visit Provider Physician Assistant | DX: Z47.1 Aftercare following joint replacement surgery (principal); Z96.691 Finger-joint replacement of right hand | CPT/HCPCS: 97110; 97165; 97530 ==

== ENCOUNTER 2024-03-14 06:00 | Outpatient (RCR) | payer OTHER, SELFPAY | END 2024-04-13 23:59 | disposition home or self-care (01) | LOC: SOT 06:00 | PROVIDERS: PCP Nurse Practitioner; Visit Provider Physician Assistant | DX: Z47.1 Aftercare following joint replacement surgery (principal); Z96.691 Finger-joint replacement of right hand | CPT/HCPCS: 97022; 97110; 97140 ==

== ENCOUNTER → 2024-04-01 09:50 | Outpatient (BNVA) | payer OTHER, SELFPAY | PROVIDERS: PCP Nurse Practitioner; Visit Provider Physician Assistant | DX: Z98.890 Other specified postprocedural states (principal); M67.441 Ganglion, right hand; M15.1 Heberden's nodes (with arthropathy); M20.011 Mallet finger of right finger(s); Z48.89 Encounter for other specified surgical aftercare | CPT/HCPCS: 73130; 99024 ==

== ENCOUNTER → 2024-05-27 09:58 | Outpatient (BNVA) | payer OTHER, SELFPAY | PROVIDERS: PCP Nurse Practitioner; Visit Provider Physician Assistant | DX: M67.441 Ganglion, right hand (principal); M15.1 Heberden's nodes (with arthropathy); Z98.890 Other specified postprocedural states; M20.011 Mallet finger of right finger(s) | CPT/HCPCS: 73130; 99213 ==

== ENCOUNTER 2024-12-23 12:24 | Outpatient (RCR) | payer OTHER, SELFPAY | END 2025-01-11 23:59 | disposition home or self-care (01) | LOC: SPT 12:24 | PROVIDERS: Visit Provider Nurse Practitioner | DX: M54.50 Low back pain, unspecified (principal) | CPT/HCPCS: 97110 ==

== ENCOUNTER 2025-01-12 06:00 | Outpatient (RCR) | payer OTHER, SELFPAY | END 2025-02-11 23:59 | disposition home or self-care (01) | LOC: SPT 06:00 | PROVIDERS: Visit Provider Nurse Practitioner | DX: M54.50 Low back pain, unspecified (principal) | CPT/HCPCS: 97110 ==

== ENCOUNTER 2025-02-12 05:00 | Outpatient (RCR) | payer OTHER, SELFPAY | END 2025-02-17 08:32 | disposition home or self-care (01) | LOC: SPT 05:00 | PROVIDERS: Visit Provider Nurse Practitioner | DX: M54.50 Low back pain, unspecified (principal) | CPT/HCPCS: 97110 ==